=== PATIENT | female | born 1965 | race Caucasian/White ===

== ENCOUNTER → 2016-09-01 | Outpatient (CLI) | payer OTHER ==
[~2016-09-01] MED LIST: CALC-393 PO; CPR500 PO; LRT5 PO; OMEP20TA14 PO; PRLSRUNK; RANI150T3 PO; ZNTT/150
[2016-09-01 13:03] LABS: BASO % 0.4 %; BASO ABS # 0.02 K/uL (0-0.2); COMPLETE YES; HEMATOCRIT 38.9 % (37-47); IG% 0.2 %; LYMPH % 39.3 %; LYMPH ABS # 2.16 K/uL (1.2-3.4); MEAN CORPUSCULAR HEMOGLOBIN 29.8 pg (25-34); MEAN CORPUSCULAR HGB CONC 32.4 g/dl (32-36); MEAN PLATELET VOLUME 10.3 fL (7.4-10.4); MONO % 9.6 %; NEUT % 48.5 %; PLATELET COUNT 285 K/uL (130-400); RED BLOOD COUNT 4.23 M/uL (4.2-5.4)
== END | disposition home or self-care (01) ==
LOC: C.LAB1850 12:07
PROVIDERS: ATTEND Obstetrics & Gynecology
DX: Z01.818 Encounter for other preprocedural examination (principal); N93.9 Abnormal uterine and vaginal bleeding, unspecified

== ENCOUNTER → 2016-09-26 | Day surgery (SDC) | payer OTHER ==
[2016-09-08 13:05] VITALS: Ht 165.1 cm; Wt 77.3 kg
[~2016-09-26] VITALS: Ht 165.1 cm; Wt 77.3 kg
[~2016-09-26] MED LIST changes: +ACETAMINOPHEN 325 MG TAB PO PRN; +ATROPINE SULFATE 0.1 MG/ML 5ML SYR IV PRN; -CPR500 PO; +DEXAMETHASONE SOD INJ 4 MG/ML VIAL ONE; +EpHEDrine SULFATE INJ 50 MG/ML AMP IV PRN; +FENTANYL CITRATE INJ 50 MCG/1 ML 2 ML VIAL IV PRN; +FENTANYL CITRATE INJ 50 MCG/1 ML 2 ML VIAL ONE; +IBUPROFEN 600 MG TAB PO PRN; +KETOROLAC TROMETHAMINE 30 MG/ML VIAL IV. PRN; +KETOROLAC TROMETHAMINE 30 MG/ML VIAL ONE; +LACTATED RINGER'S 1000ML 1,000 ML IV SCH; +LIDOCAINE HCL 2% 2 ML VIAL (20MG/ML) ONE; -LRT5 PO; +MIDAZOLAM HCL 1 MG/ML 2ML VIAL ONE; +ONDANSETRON INJ 2 MG/ML 2 ML VIAL IV PRN; +ONDANSETRON INJ 2 MG/ML 2 ML VIAL ONE; -PRLSRUNK; +PROPOFOL IV EMULSION 10 MG/ML 20 ML VIAL IV ONE; +SODIUM CHLORIDE 0.9% 1000ML 1,000 ML IV SCH; -ZNTT/150
--- NOTE | 2016-09-26 08:36 | History & Physical Bridge - [place] ---
H&P Re-Evaluation Bridge Note: I have examined the patient, reviewed the History & Physical and in the interval since the performance of the History & Physical I have noted the following changes of clinical significance: No changes noted
--- NOTE | 2016-09-26 09:09 | Discharge Instructions ---
Discharge Instructions Date of Service Sep 26, 2016. Admission Reason for Admission: Abnormal Uterine Bleeding Discharge Discharge Diagnosis / Problem: after surgery Discharge Goals Goal(s): Routine recovery after surgery Activity Recommendations Activity Limitations: as noted below . Instructions / Follow-Up Instructions / Follow-Up ACTIVITY RECOMMENDATIONS: * Avoid tampons, douching, hot tubs, pools, and intercourse until bleeding has stopped. * May shower as usual. * No strenuous activity for 24-48 hours. After 24-48 hours, you may do anything you feel like doing (driving and sports are okay). SPECIAL CARE INSTRUCTIONS: Special Diet: * Mild nausea may occur in the immediate post-operative period. * Take clear liquids such as tea, cola or bouillon until all nausea has subsided; you may then resume your normal diet. Special Care: * Light bleeding and vaginal spotting can last from a few days to 3-4 weeks. Call your doctor if bleeding becomes heavier than the heaviest part of your period. * Check your temperature twice a day for one week. If it goes above 100.4 degrees Fahrenheit (38.0 Celsius), notify your doctor. * Call your doctor's office for an appointment for 2 weeks after your surgery. FOLLOW-UP VISIT: Call your doctor's office for an appointment for 2 weeks after your surgery. Current Hospital Diet Patient's current hospital diet: Discharge Diet Recommended Diet: Regular Diet Procedures Procedures Performed: Dilatation And Curettage, Hysteroscopy, Cervical Polypectomy Pending Studies Studies pending at discharge: yes List of pending studies: pathology Medical Emergencies . Who to Call and When: Medical Emergencies: If at any time you feel your situation is an emergency, please call 911 immediately. . Non-Emergent Contact Non-Emergency issues call your: Drywall Professional . . "Provider Documentation" section prepared by Rashmi Ruiz. . VTE Core Measure Inpt VTE Proph given/why not?: Treatment not indicated
--- NOTE | 2016-09-26 09:11 | [facility] Post Operative Brief Note ---
Immediate Operative Summary Operative Date Sep 26, 2016. Pre-Operative Diagnosis Abnormal uterine bleeding, abnormal u/s findings. Post-Operative Diagnosis same Procedure(s) Performed Dilatation And Curettage, Hysteroscopy, Cervical Polypectomy Surgeon Dr Ruiz Revenue Stamp Cutter Surgeon(s) 0 Estimated Blood Loss 0 Findings uterus sounds to 7-8cm. nl ostia bilaterally. moderate to large curettings. cervical polyp noted. saline deficit 175cc Fluids (cc crystalloids) 400 Specimens A. Endometrial curettings & Cervical polyp Drains none Anesthesia general Complication(s) None Disposition Recovery Room / PACU
--- NOTE | 2016-09-26 09:27 | OPERATIVE REPORT ---
DATE OF OPERATION: 09/26/2016 PREOPERATIVE DIAGNOSES: 1. Abnormal uterine bleeding. 2. Abnormal ultrasound findings. POSTOPERATIVE DIAGNOSIS: Same. PROCEDURES: 1. Dilatation and curettage. 2. Diagnostic hysteroscopy. 3. Cervical polypectomy. SURGEON: Dr. Rashmi Ruiz. ANESTHESIA: General. STRETCHER LEVELER OPERATOR: None. IV FLUIDS: 400 mL ESTIMATED BLOOD LOSS: 0 mL. FINDINGS: Uterus sounds to 7-8 cm, normal tubal ostia bilaterally, large amount of curettings. Evidence of a cervical polyp at the lower uterine segment and into the cervical cavity. Saline hysteroscopic fluid deficit 175 mL. INDICATIONS: A 50-year-old with a history of abnormal uterine bleeding with ultrasound suggestive of a cervical polyp that was not able to be visualized on physical exam, who desired surgical management. PROCEDURE: The patient was taken to the operating room and identified. After adequate general anesthesia was obtained, she was placed in dorsal lithotomy position and prepped and draped in the usual sterile fashion. The bladder was drained for clear yellow urine. A weighted speculum and anterior retractor were placed to visualize the cervix, which was grasped at its anterior lip with an Allis clamp. The cervix was sequentially dilated using Hegar dilators to 21. The diagnostic hysteroscope primed with saline medium was gently placed through the cervical os into the uterine cavity with the findings as noted above. Using a polyp forceps as well as the serrated curette, the uterus was cleared of its contents as well as a cervical polyp was removed. All sent as specimen. The hysteroscope was used to confirm removal of the cervical polyp and with the findings as noted above. At this point, the procedure was terminated. All the instruments were removed. The patient was returned to the supine position. She was awoken from anesthesia and transferred to recovery room in stable condition. All sponge, lap, needle counts were correct x2. I attest to the content of the Intraoperative Record and any orders documented therein. Any exceptions are noted below. TILAD
[2016-09-26 09:49] VITALS: TEMP 36.2
[2016-09-26 10:07] VITALS: BP 132/83; PULSE 63; O2SAT 99
--- NOTE | 2016-09-26 10:09 | Anesthesia Progress Nt - [facility] ---
Anesthesia Post Op Note Date & Time Sep 26, 2016 at 10:09 Vital Signs Pain Intensity: 0 Vital Signs Past 12 Hours Date Time Temp Pulse Resp B/P (MAP) Pulse Ox O2 Delivery O2 Flow Rate FiO2 09/26/16 10:07 63 16 132/83 (99) 99 Room Air 09/26/16 09:49 36.2 62 16 148/97 (114) 99 Room Air 09/26/16 09:42 61 19 09/26/16 09:42 61 19 98 09/26/16 09:41 125/84 09/26/16 09:40 36.5 59 14 125/84 98 Room Air 09/26/16 09:37 61 17 09/26/16 09:37 60 17 99 09/26/16 09:36 127/81 09/26/16 09:33 56 10 100 09/26/16 09:33 56 10 09/26/16 09:32 58 11 09/26/16 09:32 59 11 100 09/26/16 09:31 123/77 09/26/16 09:27 57 11 100 09/26/16 09:27 58 11 09/26/16 09:26 123/82 09/26/16 09:25 59 15 09/26/16 09:25 60 15 100 09/26/16 09:24 60 8 100 09/26/16 09:24 57 8 09/26/16 09:23 56 14 09/26/16 09:23 56 14 100 09/26/16 09:22 56 10 09/26/16 09:22 57 10 100 09/26/16 09:21 123/72 09/26/16 09:17 62 15 100 09/26/16 09:17 59 15 09/26/16 09:16 147/81 09/26/16 09:15 68 15 100 09/26/16 09:15 69 15 09/26/16 09:11 126/98 09/26/16 09:11 36.4 80 12 126/98 99 Mask 09/26/16 09:10 80 97 09/26/16 09:10 80 09/26/16 07:18 36.6 70 18 126/85 (99) 97 Room Air Notes Mental Status: alert / awake / arousable, participated in evaluation Pt Amnestic to Procedure: Yes Nausea / Vomiting: adequately controlled Pain: adequately controlled Airway Patency, RR, SpO2: stable & adequate BP & HR: stable & adequate Hydration State: stable & adequate Anesthetic Complications: no major complications apparent
== END | disposition home or self-care (01) ==
LOC: X.SURG 06:59
PROVIDERS: ATTEND Obstetrics & Gynecology
DX: N84.1 Polyp of cervix uteri (principal); N39.3 Stress incontinence (female) (male); Z80.41 Family history of malignant neoplasm of ovary; K21.9 Gastro-esophageal reflux disease without esophagitis; K58.9 Irritable bowel syndrome, unspecified; G24.3 Spasmodic torticollis; F17.210 Nicotine dependence, cigarettes, uncomplicated; Z79.899 Other long term (current) drug therapy

== ENCOUNTER → 2017-03-22 | Outpatient (CLI) | payer OTHER ==
[~2017-03-22] MED LIST changes: -ACETAMINOPHEN 325 MG TAB PO PRN; -ATROPINE SULFATE 0.1 MG/ML 5ML SYR IV PRN; -DEXAMETHASONE SOD INJ 4 MG/ML VIAL ONE; -EpHEDrine SULFATE INJ 50 MG/ML AMP IV PRN; -FENTANYL CITRATE INJ 50 MCG/1 ML 2 ML VIAL IV PRN; -FENTANYL CITRATE INJ 50 MCG/1 ML 2 ML VIAL ONE; -IBUPROFEN 600 MG TAB PO PRN; -KETOROLAC TROMETHAMINE 30 MG/ML VIAL IV. PRN; -KETOROLAC TROMETHAMINE 30 MG/ML VIAL ONE; -LACTATED RINGER'S 1000ML 1,000 ML IV SCH; -LIDOCAINE HCL 2% 2 ML VIAL (20MG/ML) ONE; -MIDAZOLAM HCL 1 MG/ML 2ML VIAL ONE; -ONDANSETRON INJ 2 MG/ML 2 ML VIAL IV PRN; -ONDANSETRON INJ 2 MG/ML 2 ML VIAL ONE; -PROPOFOL IV EMULSION 10 MG/ML 20 ML VIAL IV ONE; -SODIUM CHLORIDE 0.9% 1000ML 1,000 ML IV SCH
== END | disposition home or self-care (01) ==
LOC: C.LAB1850 09:19
PROVIDERS: ATTEND Obstetrics & Gynecology
DX: Z80.41 Family history of malignant neoplasm of ovary (principal)